=== PATIENT | female | born 2000 | race Caucasian/White ===

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

== ENCOUNTER 2021-03-23 02:17 | Emergency (ER) | payer OTHER | END 2021-03-23 02:56 | disposition home or self-care (01) | LOC: CSHERS 02:17 | DX: F10.129 Alcohol abuse with intoxication, unspecified (principal) | CPT/HCPCS: 99284 ==